=== PATIENT | male | born 1960 | race Caucasian/White ===

== ENCOUNTER 2017-12-22 08:48 | Observation (INO) | payer MEDICAID ==
[2017-12-22] MEDS ORDERED: Aspirin 81 MG Tab.Chew PO ONE (08:55)
[2017-12-22] MEDS ORDERED: Sodium Chloride 0.9% 1,000 ML IV ONE (08:55)
--- NOTE | 2017-12-22 08:57 | EDM.PDOC ---
ED HPI GENERAL MEDICAL PROBLEM - General Chief Complaint: Chest Pain Stated Complaint: SHORTNESS OF BREATH Time Seen by Provider: 12/22/17 08:56 Source of Information: Reports: Patient - History of Present Illness INITIAL COMMENTS - FREE TEXT/NARRATIVE: HISTORY AND PHYSICAL: History of present illness: [Patient presents with chest pain/pressure 4 out of 10 no radiation arm neck or jaw not associated with diaphoresis or shortness of breath Patient has been medication noncompliant for 2-3 years he does have a history of cardiac catheter 3 years prior is unclear if he received stents Chest pain resolved with nitroglycerin Pressure remains elevated] Review of systems: As per history of present illness and below otherwise all systems reviewed and negative. Past medical history: As per history of present illness and as reviewed below otherwise noncontributory. Surgical history: As per history of present illness and as reviewed below otherwise noncontributory. Social history: No reported history of drug or alcohol abuse. Family history: As per history of present illness and as reviewed below otherwise noncontributory. Physical exam: HEENT: Atraumatic, normocephalic, pupils reactive, negative for conjunctival pallor or scleral icterus, mucous membranes moist, throat clear, neck supple, nontender, trachea midline. Lungs: Clear to auscultation, breath sounds equal bilaterally, chest nontender. Heart: S1S2, regular, negative for clicks, rubs, or JVD. Abdomen: Soft, nondistended, nontender. Negative for masses or hepatosplenomegaly. Negative for costovertebral tenderness. Pelvis: Stable nontender. Genitourinary: Deferred. Rectal: Deferred. Extremities: Atraumatic, negative for cords or calf pain. Neurovascular unremarkable. Neuro: Awake, alert, oriented. Cranial nerves II through XII unremarkable. Cerebellum unremarkable. Motor and sensory unremarkable throughout. Exam nonfocal. Diagnostics: [CBC CMP cardiac enzymes EKG Chest 1 view ] Therapeutics: [1 L normal saline Aspirin 324 mg chewable Nitroglycerin Lopressor 5 mg IV every 5 Vasotec 1.25 mg ] Impression: [Chest pain] Definitive disposition and diagnosis as appropriate pending reevaluation and review of above. chest tightness Pain Score (Numeric/FACES): 5 - Related Data Allergies Allergy/AdvReac Type Severity Reaction Status Date / Time No Known Allergies Allergy Verified 12/22/17 08:52 Home Meds: Home Meds . [Unable to Verify Home Med List] 12/22/17 [History] ED ROS GENERAL - Review of Systems Review Of Systems: ROS reveals no pertinent complaints other than HPI. ED EXAM, GENERAL - Physical Exam Exam: See Below Course - Vital Signs Last Recorded V/S: Last Vital Signs Temp 97.6 F 12/22/17 08:52 Pulse 87 12/22/17 09:23 Resp 18 12/22/17 09:23 BP 126/77 12/22/17 09:23 Pulse Ox 98 12/22/17 09:23 - Orders/Labs/Meds Orders: Active Orders 24 hr Category Date Time Status EKG Documentation Completion [RC] STAT Care 12/22/17 08:55 Active EKG Documentation Completion [RC] STAT Care 12/22/17 09:52 Active UA W/MICROSCOPIC [URIN] Stat Lab 12/22/17 08:55 Uncollected Nitroglycerin [Nitrostat] Med 12/22/17 08:55 Active 0.4 mg SL Q5M PRN Medication Orders Nitroglycerin (Nitrostat) 0.4 mg SL Q5M PRN PRN Reason: Chest Pain Last Admin: 12/22/17 09:19 Dose: 0.4 mg Admin: 12/22/17 09:08 Dose: 0.4 mg Labs: Laboratory Tests 12/22/17 12/22/17 Range/Units 08:50 08:50 WBC 12.21 H (4.0-11.0) K/uL RBC 5.54 (4.50-5.90) M/uL Hgb 16.5 (13.0-17.0) g/dL Hct 49.5 (38.0-50.0) % MCV 89.4 (80.0-98.0) fL MCH 29.8 (27.0-32.0) pg MCHC 33.3 (31.0-37.0) g/dL RDW Std Deviation 46.8 (28.0-62.0) fl RDW Coeff of Stephanie 14 (11.0-15.0) % Plt Count 222 (150-400) K/uL MPV 10.00 (7.40-12.00) fL Neut % (Auto) 62.8 (48.0-80.0) % Lymph % (Auto) 25.9 (16.0-40.0) % [place] % (Auto) 8.1 (0.0-15.0) % Eos % (Auto) 2.8 (0.0-7.0) % Baso % (Auto) 0.4 (0.0-1.5) % Neut # (Auto) 7.7 H (1.4-5.7) K/uL Lymph # (Auto) 3.2 H (0.6-2.4) K/uL [place] # (Auto) 1.0 H (0.0-0.8) K/uL Eos # (Auto) 0.3 (0.0-0.7) K/uL Baso # (Auto) 0.1 (0.0-0.1) K/uL Nucleated RBC % 0.0 /100WBC Nucleated RBCs # 0 K/uL Sodium 143 (136-146) mmol/L Potassium 3.8 (3.5-5.1) mmol/L Chloride 104 (98-110) mmol/L Carbon Dioxide 28 (21-31) mmol/L BUN 19 (6.0-23.0) mg/dL Creatinine 1.2 (0.6-1.5) mg/dL Est Cr Clr Drug Dosing 76.34 mL/min Estimated GFR (MDRD) > 60.0 ml/min Glucose 95 (60-110) mg/dL Calcium 9.9 (8.8-10.8) mg/dL Total Bilirubin 0.8 (0.1-1.5) mg/dL AST 18 (5-40) IU/L ALT 16 (8-54) IU/L Alkaline Phosphatase 106 (40-150) Creatine Kinase 119 (9-236) IU/L CK-MB (CK-2) 2.5 (0-6.6) ng/ml Troponin I < 0.10 (0.0-0.29) NG/ML Total Protein 8.0 (6.0-8.0) g/dL Albumin 4.4 (3.5-5.0) g/dL Globulin 3.6 H (2.0-3.5) g/dL Albumin/Globulin Ratio 1.2 L (1.3-2.8) Meds: Medications Generic Name Dose Route Start Last Admin Trade Name Freq PRN Reason Stop Dose Admin Nitroglycerin 0.4 mg 01/26/18 08:55 12/22/17 09:19 Nitrostat SL 0.4 mg Q5M PRN Administration Chest Pain Discontinued Medications Generic Name Dose Route Start Last Admin Trade Name Graham PRN Reason Stop Dose Admin Aspirin 324 mg 12/22/17 08:55 12/22/17 09:11 Aspirin PO 12/22/17 08:56 324 mg ONETIME ONE Administration Enalaprilat 1.25 mg 12/22/17 10:05 Vasotec Iv IVPUSH 12/22/17 10:06 ONETIME ONE Sodium Chloride 1,000 mls @ 999 mls/hr 12/22/17 08:55 12/22/17 09:13 Normal Saline IV 12/22/17 09:55 125 mls/hr STAT ONE Administration Metoprolol Tartrate 5 mg 12/22/17 09:45 Lopressor IVPUSH 12/22/17 09:56 Q5M RADHA Departure - Departure Time of Disposition: 10:08 Disposition: Refer to Observation Condition: Fair Clinical Impression: Chest pain, Hypertensive emergency - Discharge Information Forms: ED Department Discharge - My Orders Last 24 Hours: My Active Orders 12/22/17 08:55 EKG Documentation Completion [RC] STAT UA W/MICROSCOPIC [URIN] Stat Nitroglycerin [Nitrostat] 0.4 mg SL Q5M PRN 12/22/17 09:52 EKG Documentation Completion [RC] STAT - Assessment/Plan Last 24 Hours: My Active Orders 12/22/17 08:55 EKG Documentation Completion [RC] STAT UA W/MICROSCOPIC [URIN] Stat Nitroglycerin [Nitrostat] 0.4 mg SL Q5M PRN 12/22/17 09:52 EKG Documentation Completion [RC] STAT
[2017-12-22] MEDS: Nitroglycerin 0.4 MG Tab.SL SL PRN ×2 (09:08→09:19)
--- NOTE | 2017-12-22 09:24 | CR ---
EXAMINATION: Portable chest radiograph. HISTORY: Pain. FINDINGS: The trachea is midline. The cardiomediastinal silhouette is within normal limits. No pulmonary infilt rates, effusions or pneumothorax. Osseous structures appear unremarkable. IMPRESSION: No acute cardiopulmonary process.
[2017-12-22 09:45] LABS: CHLORIDE,CL 104 mmol/L (98-110); SODIUM,NA 143 mmol/L (136-146)
[2017-12-22] MEDS ORDERED: Enalaprilat 1.25 MG/ML SDV IVPUSH ONE (10:05)
[2017-12-22] MEDS: Metoprolol Tartrate 5 MG/5 ML SDV IVPUSH SCH ×3 (10:45→11:05)
--- NOTE | 2017-12-22 11:23 | PCM.HP ---
H&P History of Present Illness - General Date of Service: 12/22/17 - History of Present Illness Initial Comments - Free Text/Narative: 57 yo male with a past medical history of CAD, poorly controlled HTN presenting to ED with chief complaint of chest pain since last night. The patient states that before going to sleep, he began to experience localized chest pain, nonradiating, worsening with a deep breath along with a headache. He wasnt able to sleep much throughout the night. This morning, he checked his BP at home and states it was 220/120. He also states that he was having a headache that has since resolved in the ED. Denies any fever, chills, shortness of breath, leg pain/swelling, hx of DVT/PE. On history gathering, patient tells me he has had coronary artery disease since 1998. He has dealt with high blood pressure since then and has not been taking his medications for the past few years secondary to financial issues. He tells me he has had an angiogram done in [place] 3 years ago with no stent placement. He tells me that "one of my arteries was 40% blocked at that time". ED Course: EKG - sinus rhyhtm CBC: mild leukocytosis 12,000 CMP: unremarkable Troponin x1 negative CXR: unremarkable Nurses state patient had an episode of possible A. Flutter on cardiac exercise physiologist. chest tightness Pain Score (Numeric/FACES): 5 - Related Data Allergies/Adverse Reactions: Allergies Allergy/AdvReac Type Severity Reaction Status Date / Time No Known Allergies Allergy Verified 12/22/17 08:52 Home Medications: Home Meds . [No Known Home Meds] 12/22/17 [History] Past Medical History Cardiovascular History: Reports: Hypertension - Past Surgical History Cardiovascular Surgical History: Reports: Other (See Below) Other Cardiovascular Surgeries/Procedures: states he had blockage but does not have any stents. Social & Family History - Family History Family Medical History: Noncontributory - Tobacco Use Smoking Status *Q: Former Smoker Used Tobacco, but Quit: Yes Month Tobacco Last Used: 11/2017 - Recreational Drug Use Recreational Drug Use: No H&P Review of Systems - Review of Systems: Review Of Systems: See Below General: Reports: Other (see HPI) HEENT: Reports: Headaches, Hearing Changes (bilateral tinnitus) Pulmonary: Reports: Pleuritic Chest Pain. Denies: Shortness of Breath Cardiovascular: Reports: Chest Pain, Dyspnea on Exertion, Blood Pressure Problem. Denies: Palpitations, Edema, Syncope Gastrointestinal: Reports: No Symptoms Genitourinary: Reports: Frequency Musculoskeletal: Reports: No Symptoms Skin: Reports: No Symptoms Psychiatric: Reports: No Symptoms Neurological: Reports: Headache, Numbness (feet numbness/tingling that is chronic) Hematologic/Lymphatic: Reports: No Symptoms Immunologic: Reports: No Symptoms Exam - Exam Exam: See Below - Vital Signs Vital Signs: Last Vital Signs Temp 36.4 C 12/22/17 08:52 Pulse 72 12/22/17 11:05 Resp 18 12/22/17 11:09 BP 159/113 H 12/22/17 11:09 Pulse Ox 99 12/22/17 11:09 Weight: 118 kg - Exam General: Alert, Oriented HEENT: Conjunctiva Clear, EOMI, Mucosa Moist & [place], TMs Clear Neck: Supple, Trachea Midline Lungs: Clear to Auscultation, Normal Respiratory Effort Cardiovascular: Regular Rate, Regular Rhythm GI/Abdominal Exam: Normal Bowel Sounds, Soft, Non-Tender Back Exam: Normal Inspection, Full Range of Motion. No: CVA Tenderness (L), CVA Tenderness (R) Extremities: Normal Inspection, Normal Range of Motion, Non-Tender, No Pedal Edema, Normal Capillary Refill Peripheral Pulses: 2+: Posterior Tibial (L), Posterior Tibial (R) Skin: Warm Neurological: Cranial Nerves Intact, Reflexes Equal Bilateral Neuro Extensive - Mental Status: Alert, Oriented x3, Normal Mood/Affect Neuro Extensive - Motor, Sensory, Reflexes: CN II-XII Intact, Normal Gait, Normal Reflexes Psychiatric: Alert, Normal Affect, Normal Mood - Patient Data Result Diagrams: 12/22/17 08:50 12/22/17 08:50 *Q Meaningful Use (ADM) - VTE *Q VTE Criteria *Q: - Stroke *Q Stroke Criteria *Q: - AMI *Q AMI Criteria *Q: Problem List Initiated/Reviewed/Updated: Yes Orders Last 24hrs: Active Orders 24 hr Category Date Time Status INFLUENZA A+B AG SCREEN [RM] Stat Lab 12/22/17 11:16 Uncollected Medication Orders Nitroglycerin (Nitrostat) 0.4 mg SL Q5M PRN PRN Reason: Chest Pain Last Admin: 12/22/17 09:19 Dose: 0.4 mg Admin: 12/22/17 09:08 Dose: 0.4 mg Assessment/Plan Comment:: Assessment: #1. Chest pain - ACS Rule out #2. Hypertension #3. Mild leukocytosis #4. Abnormal rhythm strip #5. Paresthesia of lower extremities Plan: #1. admit to floor for observation. DNR/DNI. Vital signs per floor routine. Lovenox for DVT Prophylaxis #2. Cardiac telemetry #3. Troponin x 3 q6h #4. Echocardiogram. With pleuritic chest pain and leukocytosis, there are concerns for possible pericarditis although low on the differential. Patient has a PERC Score of 1 only for being over age 50, making PE highly unlikely. Will monitor closely. #5. PRN IV Labetalol for BP >180/110 #6. Restart home medications #7. Follow up on UA, test for influenza for etiology of the leukocytosis #8. Schedule outpatient stress test upon discharge #9. HgbA1c, lipid panel
[2017-12-22] MEDS ORDERED: Labetalol 100 MG/20 ML MDV IVPUSH PRN (11:37)
[2017-12-22] MEDS: Enoxaparin 40 MG/0.4 ML Syringe SUBCUT SCH (13:36)
[2017-12-22] MEDS ORDERED: Acetaminophen 325 MG Tab PO PRN (19:18)
[2017-12-23] MEDS ORDERED: Metoprolol Tartrate 50 MG Tab PO ONE (08:19)
[2017-12-23] MEDS: Hydrochlorothiazide/Triamterene 25-37.5 Tab PO SCH (10:22)
[2017-12-23] MEDS: Enoxaparin 40 MG/0.4 ML Syringe SUBCUT SCH (10:23)
--- NOTE | 2017-12-23 12:03 | PCM.PN ---
- General Info Date of Service: 12/23/17 Admission Dx/Problem (Free Text): Chest Pain Subjective Update: Still having occasional chest pain and ringing in ears which has been correlated with his increased blood pressure. Patient adamantly states that his blood pressure as regulated less than 150 systolic when he is taking his herbal medications. Otherwise he is doing well with no complaints. He is eating and eliminating without difficulty. Denies any palpitations, shortness of breath, syncopal episodes, or focal neurologic deficits. Functional Status: Reports: Pain Controlled, Tolerating Diet, Ambulating - Review of Systems General: Denies: Fever, Weakness, Fatigue, Malaise HEENT: Reports: Headaches. Denies: Dysphasia, Visual Changes Pulmonary: Denies: Shortness of Breath, Cough, Sputum Cardiovascular: Reports: Chest Pain. Denies: Palpitations, Orthopnea, Edema, Lightheadedness Gastrointestinal: Denies: Abdominal Pain, Nausea, Vomiting Genitourinary: Denies: Dysuria, Hematuria Musculoskeletal: Denies: Neck Pain, Leg Pain Skin: Denies: Cyanosis Neurological: Reports: Headache. Denies: Confusion, Dizziness Psychiatric: Denies: Confusion - Patient Data Vitals - Most Recent: Last Vital Signs Temp 97.1 F 12/23/17 09:14 Pulse 87 12/23/17 10:25 Resp 18 12/23/17 09:14 BP 183/110 H 12/23/17 10:25 Pulse Ox 97 12/23/17 09:14 Weight - Most Recent: 102.421 kg I&O - Last 24 Hours: Intake & Output 12/22/17 12/23/17 12/23/17 22:59 06:59 14:59 Intake Total 1500 Output Total 600 Balance 900 Lab Results Last 24 Hours: Laboratory Results - last 24 hr 12/22/17 12/22/17 12/22/17 Range/Units 12:00 12:30 17:32 WBC (4.0-11.0) K/uL RBC (4.50-5.90) M/uL Hgb (13.0-17.0) g/dL Hct (38.0-50.0) % MCV (80.0-98.0) fL MCH (27.0-32.0) pg MCHC (31.0-37.0) g/dL RDW Std Deviation (28.0-62.0) fl RDW Coeff of Stephanie (11.0-15.0) % Plt Count (150-400) K/uL MPV (7.40-12.00) fL Neut % (Auto) (48.0-80.0) % Lymph % (Auto) (16.0-40.0) % [place] % (Auto) (0.0-15.0) % Eos % (Auto) (0.0-7.0) % Baso % (Auto) (0.0-1.5) % Neut # (Auto) (1.4-5.7) K/uL Lymph # (Auto) (0.6-2.4) K/uL [place] # (Auto) (0.0-0.8) K/uL Eos # (Auto) (0.0-0.7) K/uL Baso # (Auto) (0.0-0.1) K/uL Nucleated RBC % /100WBC Nucleated RBCs # K/uL Sodium (136-146) mmol/L Potassium (3.5-5.1) mmol/L Chloride (98-110) mmol/L Carbon Dioxide (21-31) mmol/L BUN (6.0-23.0) mg/dL Creatinine (0.6-1.5) mg/dL Est Cr Clr Drug Dosing mL/min Estimated GFR (MDRD) ml/min Glucose (60-110) mg/dL Hemoglobin A1c (0.0-6.0) % Calcium (8.8-10.8) mg/dL Troponin I < 0.10 < 0.10 (0.0-0.29) NG/ML Triglycerides (10-190) mg/dL Cholesterol (131-240) mg/dL LDL Cholesterol, Calc (60-180) mg/dL VLDL Cholesterol (5-55) mg/dL HDL Cholesterol (40-80) mg/dL Cholesterol/HDL Ratio (3.3-6.0) Urine Color YELLOW Urine Appearance CLEAR Urine pH 6.0 (5.0-8.0) Ur Specific [place] 1.020 (1.001-1.035) Urine Protein TRACE (NEGATIVE) mg/dL Urine Glucose (UA) NEGATIVE (NEGATIVE) mg/dL Urine Ketones NEGATIVE (NEGATIVE) mg/dL Urine Occult Blood NEGATIVE (NEGATIVE) Urine Nitrite NEGATIVE (NEGATIVE) Urine Bilirubin NEGATIVE (NEGATIVE) Urine Urobilinogen 0.2 (<2.0) EU/dL Ur Leukocyte Esterase NEGATIVE (NEGATIVE) Urine RBC 0-1 (0-2/HPF) Urine WBC 0-1 (0-5/HPF) Ur Epithelial Cells RARE (NONE-FEW) Urine Bacteria RARE (NEGATIVE) 12/23/17 12/23/17 12/23/17 Range/Units 05:41 05:41 05:41 WBC 10.16 (4.0-11.0) K/uL RBC 4.87 (4.50-5.90) M/uL Hgb 14.4 (13.0-17.0) g/dL Hct 44.2 (38.0-50.0) % MCV 90.8 (80.0-98.0) fL MCH 29.6 (27.0-32.0) pg MCHC 32.6 (31.0-37.0) g/dL RDW Std Deviation 48.0 (28.0-62.0) fl RDW Coeff of Stephanie 14 (11.0-15.0) % Plt Count 197 (150-400) K/uL MPV 10.00 (7.40-12.00) fL Neut % (Auto) 53.8 (48.0-80.0) % Lymph % (Auto) 33.8 (16.0-40.0) % [place] % (Auto) 9.2 (0.0-15.0) % Eos % (Auto) 2.8 (0.0-7.0) % Baso % (Auto) 0.4 (0.0-1.5) % Neut # (Auto) 5.5 (1.4-5.7) K/uL Lymph # (Auto) 3.4 H (0.6-2.4) K/uL [place] # (Auto) 0.9 H (0.0-0.8) K/uL Eos # (Auto) 0.3 (0.0-0.7) K/uL Baso # (Auto) 0.0 (0.0-0.1) K/uL Nucleated RBC % 0.0 /100WBC Nucleated RBCs # 0 K/uL Sodium 142 (136-146) mmol/L Potassium 4.8 (3.5-5.1) mmol/L Chloride 108 (98-110) mmol/L Carbon Dioxide 28 (21-31) mmol/L BUN 24 H (6.0-23.0) mg/dL Creatinine 1.4 (0.6-1.5) mg/dL Est Cr Clr Drug Dosing 65.44 mL/min Estimated GFR (MDRD) 52.6 ml/min Glucose 103 (60-110) mg/dL Hemoglobin A1c 5.7 (0.0-6.0) % Calcium 9.6 (8.8-10.8) mg/dL Troponin I (0.0-0.29) NG/ML Triglycerides 156 (10-190) mg/dL Cholesterol 208 (131-240) mg/dL LDL Cholesterol, Calc 150 (60-180) mg/dL VLDL Cholesterol 31 (5-55) mg/dL HDL Cholesterol 27 L (40-80) mg/dL Cholesterol/HDL Ratio 7.7 H (3.3-6.0) Urine Color Urine Appearance Urine pH (5.0-8.0) Ur Specific [place] (1.001-1.035) Urine Protein (NEGATIVE) mg/dL Urine Glucose (UA) (NEGATIVE) mg/dL Urine Ketones (NEGATIVE) mg/dL Urine Occult Blood (NEGATIVE) Urine Nitrite (NEGATIVE) Urine Bilirubin (NEGATIVE) Urine Urobilinogen (<2.0) EU/dL Ur Leukocyte Esterase (NEGATIVE) Urine RBC (0-2/HPF) Urine WBC (0-5/HPF) Ur Epithelial Cells (NONE-FEW) Urine Bacteria (NEGATIVE) Kofi Results Last 24 Hours: Microbiology 12/22/17 12:00 Influenza Type A Antigen Screen - Final Nasopharyngeal Swab NEGATIVE INFLUENZA A VIRUS AG Influenza Type B Antigen Screen - Final NEGATIVE INFLUENZA B VIRUS AG Med Orders - Current: Current Medications Acetaminophen (Tylenol) 650 mg PO Q4H PRN PRN Reason: Pain Last Admin: 12/22/17 23:14 Dose: 650 mg Enoxaparin Sodium (Lovenox) 40 mg SUBCUT DAILY RADHA Last Admin: 12/23/17 10:23 Dose: 40 mg Labetalol HCl (Normodyne) 20 mg IVPUSH ONETIME PRN; Protocol PRN Reason: Hypertension Last Admin: 12/23/17 03:54 Dose: 20 mg Metoprolol Tartrate (Lopressor) 50 mg PO BIDMEALS [facility] Nitroglycerin (Nitrostat) 0.4 mg SL Q5M PRN PRN Reason: Chest Pain Last Admin: 12/22/17 09:19 Dose: 0.4 mg Triamterene/HCTZ (Maxzide 25-37.5 Mg) 1 each PO DAILY [facility] Last Admin: 12/23/17 10:22 Dose: 1 each Discontinued Medications Aspirin (Aspirin) 324 mg PO ONETIME ONE Stop: 12/22/17 08:56 Last Admin: 12/22/17 09:11 Dose: 324 mg Enalaprilat (Vasotec Iv) 1.25 mg IVPUSH ONETIME ONE Stop: 12/22/17 10:06 Last Admin: 12/22/17 10:19 Dose: 1.25 mg Sodium Chloride (Normal Saline) 1,000 mls @ 999 mls/hr IV STAT ONE Stop: 12/22/17 09:55 Last Infusion: 12/22/17 09:30 Dose: 750 mls/hr Metoprolol Tartrate (Lopressor) 5 mg IVPUSH Q5M RADHA Stop: 12/22/17 09:56 Last Admin: 12/22/17 11:05 Dose: 5 mg Metoprolol Tartrate (Lopressor) 50 mg PO ONETIME ONE Stop: 12/23/17 08:20 Last Admin: 12/23/17 08:30 Dose: 50 mg - Exam Quality Assessment: Supplemental Oxygen General: Alert, Oriented, Cooperative, No Acute Distress HEENT: Pupils Equal, Pupils Reactive, EOMI, Mucous Membr. Moist/[place] Neck: Supple Lungs: Clear to Auscultation, Normal Respiratory Effort Cardiovascular: Regular Rate, Regular Rhythm GI/Abdominal Exam: Normal Bowel Sounds, Soft, Non-Tender, No Organomegaly, No Distention (Male) Exam: Deferred Back Exam: Normal Inspection, Full Range of Motion Extremities: Normal Inspection, Non-Tender, No Pedal Edema, Normal Capillary Refill Peripheral Pulses: 2+: Radial (L), Radial (R), Posterior Tibial (L), Posterior Tibial (R), Dorsalis Pedis (L), Dorsalis Pedis (R) Skin: Warm, Dry, Intact Neurological: No New Focal Deficit Psy/Mental Status: Alert, Normal Affect, Normal Mood - Problem List & Annotations (1) Chest pain SNOMED Code(s): 42803946 Code(s): R07.9 - CHEST PAIN, UNSPECIFIED Status: Acute Current Visit: Yes Qualifiers: Chest pain type: precordial pain Qualified Code(s): R07.2 - Precordial pain - Problem List Review Problem List Initiated/Reviewed/Updated: Yes - My Orders Last 24 Hours: My Active Orders 12/22/17 19:18 Acetaminophen [Tylenol] 650 mg PO Q4H PRN 12/23/17 17:00 Metoprolol Tartrate [Lopressor] 50 mg PO BIDMEALS - Plan Plan:: 57-year-old male admitted 12/22/17 with chest pain with rest medical history of hypertension uncontrolled. Chest pain: Seems to correlate with his increased blood pressure. Troponins have been negative. Patient reports to be in taking only herbal medications and stopped all his normal oral. He reports that his blood pressures been less than 150 systolic before. Most likely secondary to his uncontrolled hypertension. Patient has had a prior angiogram some years ago that he states showed 50% occlusion. Patient will need cardiology follow-up as well as possible stress test and angiogram Hypertension: Currently uncontrolled. Have started 75 mg by mouth Lopressor twice a day as well as his home Maxizde, with when necessary hydralazine 10 mg for systolics greater than 175. May need to increase dosage or add another medication. Consider captopril if hydralazine is not as effective. Mild leukocytosis: Echocardiogram has been ordered secondary to his pleuritic chest pain and possibility of pericarditis, which is low on the differential. VTE: Lovenox, SCD Dispo: 1-2 days pending.
[2017-12-23] MEDS ORDERED: Metoprolol Tartrate 50 MG Tab PO SCH (17:00)
[2017-12-23] MEDS: hydrALAZINE 20 MG/ML SDV IVPUSH PRN (19:40)
[2017-12-23] MEDS: Metoprolol Tartrate 25 MG Tab PO SCH (20:52)
[2017-12-24] MEDS: Metoprolol Tartrate 25 MG Tab PO SCH (08:58)
[2017-12-24] MEDS: Enoxaparin 40 MG/0.4 ML Syringe SUBCUT SCH (08:59)
[2017-12-24] MEDS: Hydrochlorothiazide/Triamterene 25-37.5 Tab PO SCH (09:01)
[2017-12-24] MEDS: hydrALAZINE 20 MG/ML SDV IVPUSH PRN (12:14)
--- NOTE | 2017-12-24 14:30 | PCM.PN ---
- Review of Systems Systems Review Comment:: Patient reports intermittent dizziness and shortness of breath. - Patient Data Vitals - Most Recent: Last Vital Signs Temp 36.0 C 12/24/17 12:00 Pulse 70 12/24/17 12:00 Resp 18 12/24/17 12:00 BP 189/104 H 12/24/17 12:00 Pulse Ox 98 12/24/17 12:00 Weight - Most Recent: 102.421 kg I&O - Last 24 Hours: Intake & Output 12/23/17 12/24/17 12/24/17 22:59 06:59 14:59 Intake Total 1500 400 Output Total 500 500 Balance 1000 -100 Med Orders - Current: Current Medications Acetaminophen (Tylenol) 650 mg PO Q4H PRN PRN Reason: Pain Last Admin: 12/22/17 23:14 Dose: 650 mg Enoxaparin Sodium (Lovenox) 40 mg SUBCUT DAILY [facility] Last Admin: 12/24/17 08:59 Dose: 40 mg Hydralazine HCl (Apresoline) 10 mg IVPUSH Q6H PRN PRN Reason: Hypertension Last Admin: 12/24/17 12:14 Dose: 10 mg Lisinopril (Prinivil) 20 mg PO DAILY [facility] Nitroglycerin (Nitrostat) 0.4 mg SL Q5M PRN PRN Reason: Chest Pain Last Admin: 12/22/17 09:19 Dose: 0.4 mg Triamterene/HCTZ (Maxzide 25-37.5 Mg) 1 each PO DAILY [facility] Last Admin: 12/24/17 09:01 Dose: 1 each Discontinued Medications Aspirin (Aspirin) 324 mg PO ONETIME ONE Stop: 12/22/17 08:56 Last Admin: 12/22/17 09:11 Dose: 324 mg Enalaprilat (Vasotec Iv) 1.25 mg IVPUSH ONETIME ONE Stop: 12/22/17 10:06 Last Admin: 12/22/17 10:19 Dose: 1.25 mg Sodium Chloride (Normal Saline) 1,000 mls @ 999 mls/hr IV STAT ONE Stop: 12/22/17 09:55 Last Infusion: 12/22/17 09:30 Dose: 750 mls/hr Labetalol HCl (Normodyne) 20 mg IVPUSH ONETIME PRN; Protocol PRN Reason: Hypertension Last Admin: 12/23/17 03:54 Dose: 20 mg Metoprolol Tartrate (Lopressor) 5 mg IVPUSH Q5M [facility] Stop: 12/22/17 09:56 Last Admin: 12/22/17 11:05 Dose: 5 mg Metoprolol Tartrate (Lopressor) 50 mg PO ONETIME ONE Stop: 12/23/17 08:20 Last Admin: 12/23/17 08:30 Dose: 50 mg Metoprolol Tartrate (Lopressor) 50 mg PO BIDMEALS [facility] Last Admin: 12/23/17 17:24 Dose: 50 mg Metoprolol Tartrate (Lopressor) 75 mg PO Q12HR [facility] Last Admin: 12/24/17 08:58 Dose: 75 mg - Exam General: Alert, Oriented HEENT: Mucous Membr. Moist/[place] Neck: Supple Lungs: Clear to Auscultation, Normal Respiratory Effort Cardiovascular: Regular Rate, Regular Rhythm GI/Abdominal Exam: Soft, Non-Tender Extremities: No Pedal Edema Skin: Warm, Dry, Intact Neurological: No New Focal Deficit - Problem List Review Problem List Initiated/Reviewed/Updated: Yes - My Orders Last 24 Hours: My Active Orders 12/24/17 14:30 Lisinopril [Prinivil] 20 mg PO DAILY - Plan Plan:: 57-year-old male admitted 12/22/17 with chest pain with rest medical history of hypertension uncontrolled. Chest pain/hypertension: Patient has been having intermittent episodes of bradycardia with HR in the 40s. Will hold beta romulo and continue to monitor on telemetry Hypertension: will try lisinopril for better blood pressure control. VTE: Lovenox, SCD Dispo: 1-2 days pending.
[2017-12-24] MEDS: Lisinopril 10 MG Tab PO SCH (14:37)
[2017-12-24] MEDS ORDERED: cloNIDine 0.1 MG Tab PO PRN (18:11)
[2017-12-25] MEDS: Hydrochlorothiazide/Triamterene 25-37.5 Tab PO SCH (09:50)
[2017-12-25] MEDS: Lisinopril 10 MG Tab PO SCH (09:50)
[2017-12-25] MEDS: Enoxaparin 40 MG/0.4 ML Syringe SUBCUT SCH (09:51)
--- NOTE | 2017-12-25 17:35 | PCM.DCSUM1 ---
Discharge Summary - Hospital Course Free Text/Narrative:: Admission date: December 22, 2017 Discharge date: December 25, 2017 Admission diagnosis: #1. Chest pain-ACS rule out #2. Hypertension #3. Mild leukocytosis Discharge diagnoses: #1. Chest pain-ACS ruled out #2. Hypertension #3. Leukocytosis resolved Hospital course: This is a 57-year-old male with past history of angina, poorly controlled hypertension that presented to the emergency department complaining of centralized chest pain along with significantly elevated blood pressure as high as 220 systolic. Patient was admitted for observation and ACS rule out. Troponin 3 was negative. He is started on when necessary labetalol along with hydralazine. He was also started on hydrochlorothiazide/triamterene along with lisinopril for which he was sent home on. Patient will pressure did appear to improve from his presenting value. At the time of discharge, he described the chest pain is intermittent, mild in nature. Given his history of angina, this was likely the culprit. He is advised to go for a repeat Zehra scan and a follow- up appointment with cardiology. He is also to follow-up with primary care provider Dr. Ron. He is also given a prescription for when necessary nitroglycerin sublingual. He was also advised to return to seek medical attention if he experiences worsening chest pain, palpitations, shortness of breath, syncope. Patient agreed to the plan. - Discharge Data Discharge Date: 12/25/17 Discharge Disposition: Home, Self-Care 01 Condition: Fair - Patient Instructions Diet: Heart Healthy Diet, Low Sodium Activity: As Tolerated Driving: May Drive Today Showering/Bathing: March Shower Notify Provider of: Fever, Increased Pain - Discharge Plan Prescriptions/Med Rec: HCTZ/Triamterene [Maxzide 25-37.5 MG] 1 each PO DAILY 30 Days #30 tablet Lisinopril [Prinivil] 20 mg PO DAILY 30 Days #30 tablet Nitroglycerin [IJP: Nitroglycerin] 0.4 mg SL Q5M PRN #10 tablet, sublingual PRN Reason: Chest Pain Home Medications: Home Meds HCTZ/Triamterene [Maxzide 25-37.5 MG] 1 each PO DAILY 30 Days #30 tablet [Rx] Lisinopril [Prinivil] 20 mg PO DAILY 30 Days #30 tablet 12/25/17 [Rx] Nitroglycerin [IJP: Nitroglycerin] 0.4 mg SL Q5M PRN #10 tablet, sublingual [Rx] Patient Handouts: Nonspecific Chest Pain, [id number], Lisinopril tablets, Nitroglycerin sublingual tablets Referrals: Hill Dietz MD [Physician] - 01/03/18 3:00 pm Grabiel Ron MD [Resident] - 01/11/18 2:30 pm - Discharge Summary/Plan Comment Discharge Summary/Plan Comment: Admission date: December 22, 2017 Discharge date: December 25, 2017 Admission diagnosis: #1. Chest pain-ACS rule out #2. Hypertension #3. Mild leukocytosis Discharge diagnoses: #1. Chest pain-ACS ruled out #2. Hypertension #3. Leukocytosis resolved Hospital course: This is a 57-year-old male with past history of angina, poorly controlled hypertension that presented to the emergency department complaining of centralized chest pain along with significantly elevated blood pressure as high as 220 systolic. Patient was admitted for observation and ACS rule out. Troponin 3 was negative. He is started on when necessary labetalol along with hydralazine. He was also started on hydrochlorothiazide/triamterene along with lisinopril for which he was sent home on. Patient will pressure did appear to improve from his presenting value. At the time of discharge, he described the chest pain is intermittent, mild in nature. Given his history of angina, this was likely the culprit. He is advised to go for a repeat Zehra scan and a follow- up appointment with cardiology. He is also to follow-up with primary care provider Dr. Ron. He is also given a prescription for when necessary nitroglycerin sublingual. He was also advised to return to seek medical attention if he experiences worsening chest pain, palpitations, shortness of breath, syncope. Patient agreed to the plan. - Patient Data Vitals - Most Recent: Last Vital Signs Temp 36.2 C 12/25/17 11:55 Pulse 66 12/25/17 11:55 Resp 22 H 12/25/17 11:55 BP 174/97 H 12/25/17 11:55 Pulse Ox 93 L 12/25/17 11:55 Weight - Most Recent: 102.421 kg I&O - Last 24 hours: Intake & Output 12/25/17 12/25/17 12/25/17 06:59 14:59 22:59 Intake Total 400 300 Output Total 0 Balance 400 300 Med Orders - Current: Current Medications Discontinued Medications Acetaminophen (Tylenol) 650 mg PO Q4H PRN PRN Reason: Pain Last Admin: 12/22/17 23:14 Dose: 650 mg Aspirin (Aspirin) 324 mg PO ONETIME ONE Stop: 12/22/17 08:56 Last Admin: 12/22/17 09:11 Dose: 324 mg Clonidine HCl (Catapres) 0.1 mg PO Q8H PRN PRN Reason: hypertension Last Admin: 12/24/17 18:34 Dose: 0.1 mg Enalaprilat (Vasotec Iv) 1.25 mg IVPUSH ONETIME ONE Stop: 12/22/17 10:06 Last Admin: 12/22/17 10:19 Dose: 1.25 mg Enoxaparin Sodium (Lovenox) 40 mg SUBCUT DAILY [facility] Last Admin: 12/25/17 09:51 Dose: 40 mg Hydralazine HCl (Apresoline) 10 mg IVPUSH Q6H PRN PRN Reason: Hypertension Last Admin: 12/24/17 12:14 Dose: 10 mg Sodium Chloride (Normal Saline) 1,000 mls @ 999 mls/hr IV STAT ONE Stop: 12/22/17 09:55 Last Infusion: 12/22/17 09:30 Dose: 750 mls/hr Labetalol HCl (Normodyne) 20 mg IVPUSH ONETIME PRN; Protocol PRN Reason: Hypertension Last Admin: 12/23/17 03:54 Dose: 20 mg Lisinopril (Prinivil) 20 mg PO DAILY [facility] Last Admin: 12/25/17 09:50 Dose: 20 mg Metoprolol Tartrate (Lopressor) 5 mg IVPUSH Q5M [facility] Stop: 12/22/17 09:56 Last Admin: 12/22/17 11:05 Dose: 5 mg Metoprolol Tartrate (Lopressor) 50 mg PO ONETIME ONE Stop: 12/23/17 08:20 Last Admin: 12/23/17 08:30 Dose: 50 mg Metoprolol Tartrate (Lopressor) 50 mg PO BIDMEALS [facility] Last Admin: 12/23/17 17:24 Dose: 50 mg Metoprolol Tartrate (Lopressor) 75 mg PO Q12HR [facility] Last Admin: 12/24/17 08:58 Dose: 75 mg Nitroglycerin (Nitrostat) 0.4 mg SL Q5M PRN PRN Reason: Chest Pain Last Admin: 12/22/17 09:19 Dose: 0.4 mg Triamterene/HCTZ (Maxzide 25-37.5 Mg) 1 each PO DAILY [facility] Last Admin: 12/25/17 09:50 Dose: 1 each *Q Meaningful Use (DIS) - VTE *Q VTE Criteria *Q: - Stroke *Q Stroke Criteria *Q: - AMI *Q AMI Criteria *Q:
--- NOTE | 2017-12-26 13:14 | ECHO ---
EXAM DATE: 12/22/17 PATIENT'S AGE: 57 The echocardiogram report can be seen in this patient's EMR (Electronic Medical Record) in the Reports section. The report has also been scanned into PACs. OCTAVIO
== END 2017-12-25 13:39 | disposition home or self-care (01) ==
LOC: MW.ED 08:48 → MW.MS 10:34
PROVIDERS: ADMIT Family Medicine; ATTEND Family Medicine
DX: R07.9 Chest pain, unspecified (principal); I10 Essential (primary) hypertension; D72.829 Elevated white blood cell count, unspecified; I25.10 Atherosclerotic heart disease of native coronary artery without angina pectoris; R20.2 Paresthesia of skin; I25.119 Atherosclerotic heart disease of native coronary artery with unspecified angina pectoris; Z87.891 Personal history of nicotine dependence; Z91.14 Patient's other noncompliance with medication regimen
CPT/HCPCS: 36415; 71045; 80048; 80053; 80061; 81001; 82550; 82553; 83036; 84484; 85025; 87804; 93005; 93306; 96361; 96372; 96374; 96375; 96376; 99285; A9270; G0378; J0360; J1650; J7040